=== PATIENT | female | born 1985 ===

== ENCOUNTER 2024-11-27 17:16 | Outpatient (REF) | payer BC, SELFPAY ==
--- NOTE | 2024-11-27 15:15 | PAPFT_PTH ---
PATIENT: Murphy Hicks LOC: [facility] U#:[id number] AGE/SX: 39/F ROOM: RE11/27/[address]: Yessy Weeks : 1985 BED: DIS: 11/27/2024 SPEC #: [id number] RECD: 11/30/24 13:09 STATUS: ALMAS REQ #: [id number] GRIS: 11/27/24 15:[address]: Yessy Weeks DEPT: [facility] Cytology RECD BY: Alina Horvath ENTERED: 11/30/24 13:10 SP TYPE: PAPFT OTHR DR: Unknown,Unknown Tissues: 1 - CX/ENDOCX FOR PAP SMEARS Procedures: PAP THIN PREP/[facility] Screening HPV DNA PROBE Comments: [id number] (HPV 16 & 18/45)
== END 2024-11-27 17:17 | disposition home or self-care (01) ==
LOC: NCHCN 17:16
PROVIDERS: Visit Provider Nurse Practitioner Family
DX: Z12.4 Encounter for screening for malignant neoplasm of cervix (principal)
CPT/HCPCS: 88142; 87624

== ENCOUNTER 2025-02-22 18:11 | Outpatient (REF) | payer BC, SELFPAY ==
[2025-02-22 21:02] LABS: HCT 46.9 % (36.0-46.0); HGB 16.3 g/dL (11.2-15.7); MCH 30.0 pg (27.0-33.0); MCHC 34.8 % (32.0-36.0); MCV 86 fL (80-95); MPV 10.7 fL (8.0-11.0); Platelet Count 284 10^3/uL (130-400); RBC 5.43 10^6/uL (3.93-5.22); RDW 11.8 % (11.7-14.6); RDW-SD 37.2 fL; WBC 10.37 10^3/uL (4.4-10.8)
[2025-02-22 21:16] LABS: ALT 21 U/L (10-49); AST 29 U/L (<34); Albumin 5.0 g/dL (3.2-5.0); Alkaline Phosphatase 53 U/L (46-116); Anion Gap 8.8 mmol/L (3-11); BUN 18 mg/dL (9-23); Bilirubin, Total 0.4 mg/dL (0.2-1.2); CO2 27.2 mmol/L (20.0-31.0); Calcium 9.4 mg/dL (8.3-10.6); Chloride 104 mmol/L (98-107); Glucose 86 mg/dL (74-106); Iron 38 ug/dL (50-170); Potassium 4.5 mmol/L (3.5-5.1); Sodium 140 mmol/L (136-145); Total Iron Binding Capacity 302 ug/dL (250-425); Total Protein 8.1 g/dL (5.7-8.2)
[2025-02-22 21:18] LABS: Vitamin D 25 Total 34 ng/mL (30-100)
[2025-02-22 21:19] LABS: Ferritin 202 ng/mL (7-271)
[2025-02-22 21:23] LABS: Hemoglobin A1C 4.6 % (<5.7)
== END 2025-02-22 18:12 | disposition home or self-care (01) ==
LOC: NCHCN 18:11
PROVIDERS: Visit Provider Nurse Practitioner Family
DX: E66.9 Obesity, unspecified (principal); L65.9 Nonscarring hair loss, unspecified
CPT/HCPCS: 80053; 82306; 85027; 82728; 83036; 83540; 83550